=== PATIENT | female | born 2000 | race Two or more races ===

== ENCOUNTER 2022-08-03 06:06 | Emergency (ER) | payer OTHER ==
[~2022-08-03] VITALS: Ht 160 cm; Wt 90.0 kg
[2022-08-03] MEDS ORDERED: ONDANSETRON HCL 4MG/2ML INJ IV STA (06:22)
[2022-08-03] MEDS ORDERED: MORPHINE SULFATE 4 MG/ML CPJ (NOT FOR IM USE) IV STA (06:22)
[2022-08-03] MEDS ORDERED: SODIUM CHLORIDE 0.9% 1,000 ML IV ONE (06:30)
[2022-08-03 06:52] LABS: BASOPHILS % 0.8 % (0.0-2.0); CHLORIDE 106 mEq/L (98-107); EOSINOPHILS % 2.3 % (0.0-5.0); HEMATOCRIT. 36.1 % (36.0-48.0); HEMOGLOBIN. 12.5 g/dL (12.0-16.0); LYMPHOCYTES % 32.2 % (20.0-50.0); MEAN CORPUSCULAR HEMOGLOBIN 30.1 pg (28.0-32.0); MEAN CORPUSCULAR VOLUME 86.9 fL (81.0-99.0); MEAN PLATELET VOLUME 7.5 fl (7.4-10.4); MONOCYTES % 5.7 % (2.0-8.0); PLATELET 269 x1000/uL (130-400); RED BLOOD CELL COUNT 4.16 mill/uL (4.2-5.4); RED CELL DISTRIBUTION WIDTH 12.8 % (11.6-14.6)
[2022-08-03 07:02] LABS: HCG SCREEN NEGATIVE
[2022-08-03 09:01] LABS: CLARITY URINE CLEAR (CLEAR); COLOR URINE ORANGE (YELLOW); KETONES URINE NEGATIVE (NEGATIVE); LEUKOCYTE ESTERASE URINE NEGATIVE (NEGATIVE); NITRITE URINE NEGATIVE (NEGATIVE); OCCULT BLOOD URINE 3+ (NEGATIVE); PH URINE 6.5 (4.5-8.0); PROTEIN URINE NEGATIVE (NEGATIVE); SPECIFIC GRAVITY URINE 1.012 (1.005-1.030); UROBILINOGEN URINE 0.2 E.U./dL (0.2-1.0)
[2022-08-03 09:14] LABS: *AMPHETAMINES SCREEN URINE NEGATIVE (NEGATIVE); *BARBITURATES SCREEN URINE NEGATIVE (NEGATIVE); *BENZODIAZEPINES SCREEN URINE NEGATIVE (NEGATIVE); *COCAINE SCREEN URINE NEGATIVE (NEGATIVE); CANNABINOID URINE SCREEN NEGATIVE (NEGATIVE); METHADONE URINE SCREEN NEGATIVE (NEGATIVE); OPIATES URINE SCREEN NEGATIVE (NEGATIVE); PHENCYCLIDINE URINE SCREEN NEGATIVE (NEGATIVE)
[2022-08-03] MEDS ORDERED: ONDANSETRON HCL 4MG/2ML INJ IV NR (10:45)
[2022-08-03] MEDS ORDERED: MORPHINE SULFATE 4 MG/ML CPJ (NOT FOR IM USE) IV NR (10:45)
[2022-08-03] MEDS ORDERED: DIAZEPAM 5 MG TABLET PO ONE (11:00)
[2022-08-03] MEDS ORDERED: METH-773 MT (11:48)
[2022-08-03] MEDS ORDERED: IBUP-2030 MT (11:48)
[2022-08-03] MEDS ORDERED: DIAZEPAM 5 MG TABLET PO NR (12:15)
[2022-08-03 12:55] VITALS: BP 115/63
== END 2022-08-03 13:00 | disposition home or self-care (01) ==
LOC: ER 06:06
DX: R10.2 Pelvic and perineal pain (principal); M54.50 Low back pain, unspecified; M79.604 Pain in right leg; N83.202 Unspecified ovarian cyst, left side; E11.9 Type 2 diabetes mellitus without complications; E78.00 Pure hypercholesterolemia, unspecified
CPT/HCPCS: 36415; 74176; 76830; 76856; 80053; 80305; 81003; 83690; 84703; 85025; 96360; 99285; J2270; J2405; J7030

== ENCOUNTER 2024-08-11 18:04 | Emergency (ER) | payer OTHER ==
[~2024-08-11] VITALS: Ht 167.6 cm; Wt 70.0 kg
[~2024-08-11 18:04] MED LIST: IBUP-2030 MT; METH-773 MT
[2024-08-11 18:08] VITALS: O2SAT 100
[2024-08-11 19:24] LABS: BASOPHILS % 0.6 % (0.0-2.0); EOSINOPHILS % 0.5 % (0.0-5.0); HEMATOCRIT. 39.4 % (36.0-48.0); HEMOGLOBIN. 13.1 g/dL (12.0-16.0); LYMPHOCYTES % 16.5 % (20.0-50.0); MEAN CORPUSCULAR HEMOGLOBIN 29.2 pg (28.0-32.0); MEAN CORPUSCULAR HGB CONC 33.3 g/dL (31.0-37.0); MEAN CORPUSCULAR VOLUME 87.7 fL (81.0-99.0); MEAN PLATELET VOLUME 8.2 fl (7.4-10.4); MONOCYTES % 5.4 % (2.0-8.0); PLATELET 400 x1000/uL (130-400); RED BLOOD CELL COUNT 4.49 mill/uL (4.2-5.4); RED CELL DISTRIBUTION WIDTH 12.9 % (11.6-14.6)
[2024-08-11 19:30] LABS: CHLORIDE 106 mEq/L (98-107); SODIUM 139 mEq/L (136-145)
[2024-08-11 19:31] LABS: CARBON DIOXIDE 24 mEq/L (21-32)
[2024-08-11 19:32] LABS: CALCIUM 9.8 mg/dL (8.7-10.4)
[2024-08-11 19:36] LABS: CREATININE 0.7 mg/dL (0.6-1.0); GLUCOSE 111 mg/dL (70-105)
[2024-08-11 19:37] LABS: UREA NITROGEN BLOOD 10 mg/dL (9-23)
[2024-08-11 19:38] LABS: ALBUMIN 4.7 g/dL (3.2-4.8)
[2024-08-11 19:39] LABS: BILIRUBIN DIRECT 1.3 mg/dL (<=3.0); BILIRUBIN TOTAL 2.4 mg/dL (0.1-1.0); PROTEIN TOTAL 8.3 g/dL (6.0-8.3)
[2024-08-11 19:46] LABS: HCG SCREEN NEGATIVE
[2024-08-11 20:06] LABS: CLARITY URINE CLEAR (CLEAR); COLOR URINE DARK YELLOW (YELLOW); GLUCOSE URINE NEGATIVE (NEGATIVE); KETONES URINE TRACE (NEGATIVE); LEUKOCYTE ESTERASE URINE 1+ (NEGATIVE); NITRITE URINE NEGATIVE (NEGATIVE); OCCULT BLOOD URINE NEGATIVE (NEGATIVE); PROTEIN URINE NEGATIVE (NEGATIVE); SPECIFIC GRAVITY URINE 1.023 (1.005-1.030)
[2024-08-11 20:38] LABS: RBC URINE 0-2 /hpf (0-2); SQUAMOUS EPITHELIAL CELL URINE FEW /lpf (RARE/1+); WBC URINE 0-2 /hpf (0-2)
[2024-08-11 20:39] LABS: BACTERIA URINE TRACE
[2024-08-11 20:44] LABS: ALANINE AMINOTRANSFERASE 1955 IU/L (10-49); ASPARTATE AMINOTRANSFERASE 1821 IU/L (<34)
[2024-08-11] MEDS: ONDANSETRON HCL 4MG TABLET PO ONE (21:44)
[2024-08-11] MEDS: ACETAMINOPHEN 325MG TABLET PO ONE (21:44)
[2024-08-11 23:03] LABS: HEPATITIS B SURFACE ANTIGEN NEGATIVE (Negative)
[2024-08-11 23:16] LABS: HEPATITIS A AB IGM NEGATIVE (Negative)
[2024-08-11 23:17] LABS: HEPATITIS B CORE AB IGM NEGATIVE (Negative); HEPATITIS C AB NON REACTIVE (Neg) (Negative)
[2024-08-12 01:36] VITALS: BP 110/59; PULSE 89; RESP 14; TEMP 36.3; O2SAT 100
[2024-08-12] MEDS ORDERED: MAG-55 MT (02:49)
[2024-08-12] MEDS ORDERED: NAPR-1176 MT (02:49)
== END 2024-08-12 02:50 | disposition left against medical advice (07) ==
LOC: ER 18:04
DX: R79.89 Other specified abnormal findings of blood chemistry (principal); E11.9 Type 2 diabetes mellitus without complications; E78.00 Pure hypercholesterolemia, unspecified; Z79.1 Long term (current) use of non-steroidal anti-inflammatories (NSAID); Z79.899 Other long term (current) drug therapy
CPT/HCPCS: 99284; 76700; 80076; 80048; 81003; 81025; 84703; 83690; 85025; 87340; 36415; 86709; 86705; Q0162